=== PATIENT | female | born 1980 | race Hispanic/Latino ===

== ENCOUNTER 2018-04-02 04:07 | Emergency (ER) | payer BC ==
[2018-04-02 04:13] VITALS: RESP 18
[2018-04-02] MEDS ORDERED: Sodium Chloride 0.9% 1,000 ML IV STA (04:32)
[2018-04-02] MEDS ORDERED: Atrop/Hyosc/Scopal/PB Elixir (120 ml) PO STA (04:32)
[2018-04-02] MEDS ORDERED: Alum-Mag Hydrox-Simethicone Susp (30 mL) PO STA (04:32)
--- NOTE | 2018-04-02 04:36 | ED PDOC ---
Arrival/HPI - General Chief Complaint: Abdominal Pain Time Seen by Provider: 04/02/18 04:12 - History of Present Illness Narrative History of Present Illness (Text): 37 y/o F c PSHx appendectomy, cholecystectomy p/w abdominal pain x 2-3 days. Patient reports epigastric pain radiating up to throat. Reports vomiting. Reports diarrhea on Day 1, no bowel movements since. Reports no urination today. Denies fever, dyspnea, dysuria. Patient reports being seen at [facility] yesterday and was seen at [facility]. According to chart, patient with drug seeking behavior, inducing vomiting. [employer] Registry shows multiple prescriptions for narcotics in the past month. Past Medical History - Gastrointestinal Hx Gastroesophageal Reflux: Yes - Psychiatric Hx Substance Use: No - Surgical History Hx Appendectomy: Yes Hx Cholecystectomy: Yes - Anesthesia Hx Anesthesia: Yes Hx Anesthesia Reactions: No Hx Malignant Hyperthermia: No - Suicidal Assessment Feels Threatened In Home Enviroment: No Family/Social History Family/Social History: No Known Family HX Smoking Status: Heavy Smoker > 10 Cigarettes Daily Hx Alcohol Use: Yes Hx Substance Use: No Allergies/Home Meds Allergies/Adverse Reactions: Allergies No Known Allergies Allergy (Verified 03/31/18 16:48) Review of Systems - Physician Review All systems were reviewed & negative as marked: Yes - Review of Systems Respiratory: absent: SOB Physical Exam - Physical Exam Narrative Physical Exam (Text): Gen: Moaning frequently Head: AT Eyes: No icterus ENT: MMM. No pharyngeal erythema or exudates Neck: Supple Chest: No tenderness CV: Regular rate Lungs: CTA b/l Abd: Voluntary guarding Back: No CVA tenderness Extremities: No edema or tenderness Skin: No rash Neuro: Alert, no focal deficit Vital Signs Temp Pulse Resp BP Pulse Ox 04/02/18 04:11 98.4 F 75 18 111/70 100 Medical Decision Making ED Course and Treatment: Differential: Pancreatitis, gastritis, gastric/duodenal ulcer, drug seeking, dehydration. Plan: Labs, imaging, Zofran, IVF, Pepcid/Maalox/Donnatol, urine catheterization CXR no mediastinal air. No air under diaphgram. 04/02/18 06:46 IMPRESSION: Cholecystectomy. Appendectomy. Ruptured follicle/corpus luteum cyst of the right ovary. Small amount of free fluid in the pelvis. Mild diffuse thickening of the sigmoid. Underdistention, spasm versus mild colitis. Patient repeatedly inducing vomiting. Patient discharged home, f/u PMD, has appointment scheduled. Return to ED for worsening pain, fever, vomiting, dyspnea, or any other problem. - RAD Interpretation Radiology Orders: 04/02/18 04:31 CHEST TWO VIEWS (PA/LAT) [RAD] Stat 04/02/18 04:32 ABD & PELVIS IV CONTRAST ONLY [CT] Stat - Medication Orders Current Medication Orders: Al Hydrox/Mg Hydrox/Simethicone (Maalox Plus 30 Ml) 30 ml PO STAT STA Stop: 04/02/18 04:33 Belladonna/Phenobarbital ( Elixir) 5 ml PO STAT STA Stop: 04/02/18 04:33 Famotidine (Pepcid) 20 mg IVP STAT STA Stop: 04/02/18 04:33 Sodium Chloride (Sodium Chloride 0.9%) 1,000 mls @ 999 mls/hr IV .Q1H1M STA Stop: 04/02/18 05:32 Ondansetron HCl (Zofran Inj) 8 mg IVP STAT STA Stop: 04/02/18 04:33 Disposition/Present on Arrival - Present on Arrival Any Indicators Present on Arrival: No History of DVT/PE: No History of Uncontrolled Diabetes: No Urinary Catheter: No History of Decub. Ulcer: No History Surgical Site Infection Following: None - Disposition Have Diagnosis and Disposition been Completed?: Yes Diagnosis: Colitis, Ovarian cyst Disposition: HOME/ ROUTINE Disposition Time: 06:47 Patient Plan: Discharge Patient Problems: Current Active Problems Problem Status Onset Colitis Acute Ovarian cyst Acute Condition: STABLE Discharge Instructions (ExitCare): Inflammatory Bowel Disease, Ovarian Cyst (DC) Prescriptions: Famotidine [Pepcid] 1 tab PO BID #14 tab Ibuprofen [Motrin] 1 tab PO Q6 #30 tab levoFLOXacin [Levaquin] 1 tab PO DAILY #10 tab Metronidazole [Flagyl] 500 mg PO Q8 #30 tab Ondansetron ODT [Zofran ODT] 4 mg PO Q8 #12 odt Referrals: Jamie Morgan [Primary Care Provider] - Follow up with primary Forms: [facility] (Irish), WORK NOTE
[2018-04-02 05:09] LABS: PH,URINE 6.5 (4.7-8.0); URINE BILIRUBIN MODERATE (NEGATIVE); URINE BLOOD SMALL (NEGATIVE); URINE GLUCOSE (UA) NEGATIVE (NEGATIVE); URINE LEUKOCYTE ESTERASE NEGATIVE Leu/uL (NEGATIVE); URINE PROTEIN NEGATIVE mg/dL (<30 mg/dL); URINE UROBILINOGEN 0.2 E.U./dL (<1 E.U./dL)
[2018-04-02 05:09] LABS: ALB/GLOB RATIO 1.6 (1.1-1.8); ALBUMIN 4.4 g/dL (3.0-4.8); ALT/SGPT 35 U/L (7-56); AST/SGOT 27 U/L (14-36); BLOOD UREA NITROGEN 10 mg/dL (7-21); CALCIUM 9.3 mg/dL (8.4-10.5); GFR NON-AFRICAN AMERICAN > 60; LIPASE 18 U/L (23-300)
[2018-04-02] MEDS ORDERED: Iohexol 350 MG/100 ML VIAL ONE (05:23)
[2018-04-02 05:24] LABS: URINE APPEARANCE SL CLOUDY (CLEAR); URINE COLOR YELLOW (YELLOW)
[2018-04-02 05:25] LABS: HCG,QUALITATIVE URINE NEGATIVE (NEGATIVE)
[2018-04-02 05:27] LABS: RBC 4.25 10^6/uL (3.5-6.1)
[2018-04-02 05:28] LABS: GRAN % 88.5 % (50.0-68.0); HEMOGLOBIN 12.4 g/dL (12.0-16.0); LYMPH % 6.2 % (22.0-35.0); MEAN CORPUSCULAR HEMOGLOBIN 29.2 pg (25.0-35.0); MEAN CORPUSCULAR HGB CONC 33.2 g/dl (31.0-37.0); MEAN PLATELET VOLUME 11.9 fl (7.0-11.0); MONO % 4.8 % (1.0-6.0); RED CELL DISTRIBUTION WIDTH 13.5 % (11.5-14.5)
[2018-04-02 05:29] LABS: BASO # 0.05 K/mm3 (0.0-2.0); BASO % 0.4 % (0.0-3.0); EOS % 0.1 % (1.5-5.0); GRAN # 11.53 (1.4-6.5); LYMPH # 0.8 (1.2-3.4); MONO # 0.6 (0.1-0.6)
[2018-04-02 05:38] LABS: URINE BACTERIA MOD (NEG)
[2018-04-02 06:37] VITALS: BP 114/58; PULSE 69; TEMP 98.2; O2SAT 97
--- NOTE | 2018-04-02 11:13 | CT ---
Date of service: 04/02/2018 PROCEDURE: CT Abdomen and Pelvis. HISTORY: Abdominal pain COMPARISON: None. TECHNIQUE: Contiguous axial images of the abdomen and pelvis performed following intravenous injection of Omnipaque 350 contrast material. Additional 2D sagittal and coronal reformats generated. Radiation dose: Total exam DLP = 340.77 mGy-cm. This CT exam was performed using one or more of the following dose reduction techniques: Automated exposure control, adjustment of the mA and/or kV according to patient size, and/or use of iterative reconstruction technique. FINDINGS: LOWER THORAX: Heart size is within range of normal. No significant pericardial effusion. Small hiatal hernia. Lung bases clear LIVER: Mid very mild central intrahepatic biliary ductal dilatation likely related to post cholecystectomy.. There is a small elliptical approximately 2.1 x 1.60 cm of elliptical shaped low-attenuation focus left lobe liver abutting the surface and falciform ligament. This could represent a focal fatty infiltration however the possibility of a hemangioma or other lesion not excluded. Portal and splenic veins opacified. GALLBLADDER AND BILE DUCTS: Cholecystectomy. PANCREAS: Pancreas appears slightly atrophic and fatty replaced. No obvious pancreatic masses collections or calcifications. No significant pancreatic ductal dilatation SPLEEN: Unremarkable. No splenomegaly. ADRENALS: No adrenal lesions. KIDNEYS AND URETERS: Kidneys demonstrate relatively symmetric nephrograms. No evidence of nephrolithiasis or hydronephrosis. BLADDER: The urinary bladder is collapsed about an in situ unclamped Jasso catheter. Bladder wall thickening and air likely due to incomplete distention and instrumentation respectively. Rule out cystitis. REPRODUCTIVE: There is a small approximately 2.0 x 1.6 cm elliptical shaped low-attenuation focus with apparent peripheral hyperdense likely enhancing rim right adnexal region felt to represent involuting and or hemorrhagic cyst. Small amount of free fluid is seen in the pelvis APPENDIX: Apparent changes of appendectomy. BOWEL: Evaluation of the bowel is limited due to the lack of oral contrast material. The stomach is partially distended with food debris liquid and air. Wall thickening likely due to incomplete distention. Visualized loops of small bowel exhibit normal contour and caliber. No evidence of acute mechanical small bowel obstruction. Stool and air seen throughout the large bowel. No definitive evidence of mural wall thickening. PERITONEUM: There is a small amount of free fluid seen in the pelvis. No free intraperitoneal air. LYMPH NODES: Unremarkable. No enlarged lymph nodes. VASCULATURE: Unremarkable. No aortic aneurysm. No aortic atherosclerotic calcification or mural plaque present. BONES: Suspect small bone island or osteoma within the medial aspect left superior pubic ramus. OTHER FINDINGS: None. IMPRESSION: Probable small involuting or hemorrhagic right ovarian cyst with small amount of free fluid in the pelvis. In situ the unclamped Jasso catheter with collapse of the urinary bladder about the inflated balloon as well as small amount of intraluminal urinary bladder air.. Changes of cholecystectomy with mild central intrahepatic biliary ductal dilatation. Probable fatty infiltration liver adjacent to the falciform ligament. Appendectomy.
--- NOTE | 2018-04-02 12:56 | RAD ---
Date of service: 04/02/2018 HISTORY: epigastric pain, vomiting COMPARISON: No prior. TECHNIQUE: Note that the film is mislabeled of with the left-sided marker overlying the right hemithorax FINDINGS: LUNGS: No active pulmonary disease. PLEURA: No significant pleural effusion identified. No pneumothorax apparent. CARDIOVASCULAR: No aortic atherosclerotic calcification present. Normal cardiac size. No pulmonary vascular congestion. OSSEOUS STRUCTURES: No significant abnormalities. VISUALIZED UPPER ABDOMEN: Normal. OTHER FINDINGS: None. IMPRESSION: No acute cardiopulmonary disease. Note that this film has been mislabeled and there is no evidence of dextrocardia the
== END 2018-04-02 07:05 | disposition home or self-care (01) ==
LOC: ED 04:07
DX: K52.9 Noninfective gastroenteritis and colitis, unspecified (principal); N83.201 Unspecified ovarian cyst, right side; F17.210 Nicotine dependence, cigarettes, uncomplicated
CPT/HCPCS: 71046; 74177; 80053; 81001; 83690; 84703; 85025; 87086; 96361; 96374; 96375; 99285; C9113; J2405; J3480; J7030; Q9967